=== PATIENT | female | born 1985 | race Caucasian/White ===

== ENCOUNTER 2019-11-22 09:17 | Outpatient (CLI) | payer OTHER, SELFPAY ==
--- NOTE | 2019-11-22 11:15 | NEURO_ITS ---
Patient Number: [id number] Impression: # Complains of twitching of muscles after taking Sertraline and continuous even though she stopped the medicine. # Normal nerve conduction study. # Normal needle/EMG exam without any evidence of neurogenic changes, myopathic changes or fibs. Nerve Conduction Studies Anti Sensory Summary Table Stim Site NR Peak (ms) P-T Amp (?V) Site1 Site2 Delta-P (ms) Dist (cm) Juan (m/s) Left Median Anti Sensory (2-3nd Digit) Wrist 2.8 90.4 Wrist 2-3nd Digit 2.8 14.0 50 Wrist 2.7 83.6 Wrist 2-3nd Digit 2.8 14.0 50 Right Median Anti Sensory (2-3nd Digit) Wrist 2.6 82.3 Wrist 2-3nd Digit 2.6 14.0 54 Wrist 2.8 91.5 Wrist 2-3nd Digit 2.6 14.0 54 Left Radial Anti Sensory (Base 1st Digit) Wrist 1.9 27.5 Wrist Base 1st Digit 1.9 0.0 Right Radial Anti Sensory (Base 1st Digit) Wrist 2.1 27.9 Wrist Base 1st Digit 2.1 0.0 Left Sup Fibular Anti Sensory (Ant Lat Mall) 14 cm 2.9 14.4 14 cm Ant Lat Mall 2.9 16.0 55 Right Sup Fibular Anti Sensory (Ant Lat Mall) 14 cm 3.3 13.8 14 cm Ant Lat Mall 3.3 16.0 48 Left Sural Anti Sensory (Lat Mall) Calf 3.9 10.3 Calf Lat Mall 3.9 16.0 41 Right Sural Anti Sensory (Lat Mall) Calf 3.7 18.7 Calf Lat Mall 3.7 16.0 43 Left Ulnar Anti Sensory (5th Digit) Wrist 2.4 78.1 Wrist 5th Digit 2.4 14.0 58 Right Ulnar Anti Sensory (5th Digit) Wrist 2.1 89.5 Wrist 5th Digit 2.1 14.0 67 Motor Summary Table Stim Site NR Onset (ms) O-P Amp (mV) Site1 Site2 Delta-0 (ms) Dist (cm) Juan (m/s) Left Median Motor (Abd Poll Brev) Wrist 2.9 8.1 Elbow Wrist 4.2 26.0 62 Elbow 7.1 9.4 Right Median Motor (Abd Poll Brev) Wrist 3.0 10.0 Elbow Wrist 4.6 26.0 57 Elbow 7.6 4.1 Left Peroneal Motor Run #2 (Vastus Med) Ankle 4.3 4.6 Popit Ankle 6.7 36.0 54 Popit 11.0 4.3 Right Peroneal Motor (Vastus Med) Ankle 3.8 5.7 Popit Ankle 6.7 36.0 54 Popit 10.5 5.0 Left Tibial Motor (Abd Motley Brev) Ankle 4.9 11.3 Knee Ankle 7.7 40.0 52 Knee 12.6 10.3 Right Tibial Motor (Abd Motley Brev) Ankle 3.8 7.6 Knee Ankle 8.3 39.0 47 Knee 12.1 5.6 Left Ulnar Motor (Abd Dig Minimi) Wrist 2.1 7.6 A Elbow Wrist 4.1 28.0 68 A Elbow 6.2 6.9 Right Ulnar Motor (Abd Dig Minimi) Wrist 2.2 8.8 A Elbow Wrist 3.8 26.0 68 A Elbow 6.0 8.1 F Wave Studies NR F-Lat (ms) L-R F-Lat (ms) Left Median (Mrkrs) (Abd Poll Brev) 25.71 0.96 Right Median (Mrkrs) (Abd Poll Brev) 26.67 0.96 Left Peroneal (Mrkrs) (EDB) 47.19 0.88 Right Peroneal (Mrkrs) (EDB) 48.07 0.88 Left Tibial (Mrkrs) (Abd Hallucis) 48.28 0.63 Right Tibial (Mrkrs) (Abd Hallucis) 47.66 0.63 Left Ulnar (Mrkrs) (Abd Dig Min) 25.59 0.41 Right Ulnar (Mrkrs) (Abd Dig Min) 25.18 0.41 EMG Side Muscle Nerve Root Ins Act Fibs Amp Dur Recrt Comment Right 1stDorInt Ulnar C8-T1 Nml Nml Nml Nml Nml Right Ext Indicis Radial (Post Int) C7-8 Nml Nml Nml Nml Nml Right Ext Digitorum Radial (Post Int) C7-8 Nml Nml Nml Nml Nml Right BrachioRad Radial C5-6 Nml Nml Nml Nml Nml Right PronatorTeres Median C6-7 Nml Nml Nml Nml Nml Right Abd Poll Brev Median C8-T1 Nml Nml
== END 2019-11-22 09:18 | disposition home or self-care (01) ==
PROVIDERS: PCP Family Medicine; Visit Provider Psychiatry & Neurology Neurology
DX: R20.2 Paresthesia of skin (principal)
CPT/HCPCS: 95886; 95913

== ENCOUNTER → 2020-07-06 11:55 | Outpatient (CLI) | payer OTHER, SELFPAY ==
--- NOTE | ~2020-07-06 | US_ITS ---
EXAMINATION: US OB >= 14 weeks Fetus DATE: 07/06/2020 12:32 INDICATION: Second trimester anatomic survey TECHNIQUE: Real-time ultrasound of the pelvis was performed. COMPARISON: None. FINDINGS: There is a single living fetus in vertex presentation. The placenta is anterior. heart rate is 148 beats per minute (bpm). cardiac activity and movement are noted. The amniotic fluid index is subjectively normal. The following anatomy was identified as normal: 4 chamber heart 3 vessel cord cord insertion kidneys urinary bladder stomach spine diaphragm ventricles cisterna magna cerebellum The following biometric data were obtained: Biparietal diameter (BPD): 4.2 cm; head circumference (HC): 16.0 cm; abdominal circumference (AC): 13 .2 cm; femur length (FL): 2.6 cm. These measurements are concordant. Estimated weight is 238 g +/- 35 g, which correlates with the 62nd percentile when 12/06/2020 is used as estimated date of delivery. As single measurements, these parameters are each equal to the following estimated gestational ages w ith ranges of +/- 2 standard deviations: BPD: 18 weeks 5 days ( 17 weeks 0 days - 20 weeks 4 days). HC: 18 weeks 6 days ( 17 weeks 2 days - 20 weeks 2 days). AC: 18 weeks 5 days ( 16 weeks 5 days - 20 weeks 5 days). FL: 18 weeks 0 days ( 16 weeks 4 days - 19 weeks 2 days). estimated gestational age based solely on measurements from this exam is 18 weeks 4 days +/- 1 weeks 2 days. IMPRESSION: 1. Single living fetus in vertex presentation. 2. Estimated weight is 238 g +/- 35 g, which correlates with the 62nd percentile when 12/06/2020 is used as estimated date of delivery. Reviewed, dictated and finalized at location B. IMPRESSION: 1. Single living fetus in vertex presentation. 2. Estimated weight is 238 g +/- 35 g, which correlates with the 62nd per centile when 12/06/2020 is used as estimated date of delivery.
== END ==
PROVIDERS: Visit Provider Obstetrics & Gynecology
DX: Z36.89 Encounter for other specified antenatal screening (principal); Z3A.18 18 weeks gestation of pregnancy
CPT/HCPCS: 76805

== ENCOUNTER 2020-11-21 11:41 | Outpatient (CLI) | payer OTHER, SELFPAY ==
[2020-11-21 12:19] LABS: Basophils Percent Auto 0.2 % (0.2-1.2); Eosinophils Absolute Auto 0.1 K/mm3 (0-0.3); Eosinophils Percent Auto 0.6 % (0-4.4); Hematocrit 38.9 % (37.0-47.0); Hemoglobin 12.9 g/dL (12.0-15.0); Immature Granulocyte Absolute 0.03 K/mm3 (0.00-0.031); Immature Granulocyte Percent A 0.4 % (0-0.5); Lymphocytes Absolute Auto 1.88 K/mm3 (0.9-3.2); Mean Corpuscular HGB Conc 33.2 g/dl (32-36); Mean Corpuscular Hemoglobin 28.3 pg (26-34); Mean Corpuscular Volume 85.3 fl (80-100); Mean Platelet Volume 9.2 fl (7.4-10.4); Monocytes Absolute Auto 0.6 K/mm3 (0.1-0.6); Monocytes Percent Auto 6.5 % (2.6-8.5); Neutrophils Percent Auto 70.3 % (45.5-73.1); Platelet Count Result 249 k/mm3 (150-375); Red Blood Count 4.56 M/mm3 (4.2-5.4); Red Cell Distribution Width 13.8 % (11.5-14.5); White Blood Count 8.6 K/mm3 (4.5-10.0)
[2020-11-21 12:34] LABS: Anion Gap 4 mmol/L (8-16); Blood Urea Nitrogen 8 mg/dL (7-17); Carbon Dioxide 24 mmol/L (22-30); Chloride 106 mmol/L (98-107); Lactate Dehydrogenase 205 U/L (313-618); Potassium 3.9 mmol/L (3.4-5.0); Sodium 134 mmol/L (137-145)
[2020-11-21 12:35] LABS: Alanine Aminotransferase 23 U/L (4-35); Albumin Level 3.7 g/dL (3.5-5.1); Alkaline Phosphatase 105 U/L (38-126); Aspartate Amino Transferase 25 U/L (14-36); Bilirubin,Total 0.4 mg/dL (0.2-1.3); Calcium 8.8 mg/dL (8.4-10.2); Estimated Glomerular Filt Rate > 60; Glucose 90 mg/dL (65-105); Uric Acid 4.9 mg/dL (2.5-7.5)
== END 2020-11-21 11:42 | disposition home or self-care (01) ==
LOC: ANHOBOP 11:49
PROVIDERS: PCP Family Medicine; Visit Provider Obstetrics & Gynecology
DX: O13.9 Gestational [pregnancy-induced] hypertension without significant proteinuria, unspecified trimester (principal); Z3A.00 Weeks of gestation of pregnancy not specified
CPT/HCPCS: 36415; 80053; 83615; 84550; 85025

== ENCOUNTER 2020-11-22 13:19 | Outpatient (NON) | payer OTHER, SELFPAY ==
[2020-11-22 13:28] VITALS: BMI 39.9
[2020-11-22 13:41] LABS: Collection Time Urine 24 HOURS
[2020-11-22 13:47] LABS: Specific Gravity Ur 1.009; Total Volume 24 Hour Urine 2600 ml
[2020-11-22 14:01] LABS: Creatinine Clearance Urine 153.2 ml/min (75-125); Creatinine Urine 61.1 mg/dL; Patient Weight 232 Lbs
[2020-11-22 15:49] LABS: Total Protein Urine 24 Hr 156 mg/24hr (0-149); Total Protein Urine Random < 6.0 mg/dL (0.0-11.9)
== END 2020-11-22 13:20 ==
PROVIDERS: PCP Family Medicine; Visit Provider Obstetrics & Gynecology
DX: O13.9 Gestational [pregnancy-induced] hypertension without significant proteinuria, unspecified trimester (principal); Z3A.00 Weeks of gestation of pregnancy not specified
CPT/HCPCS: 81050; 82575; 84156

== ENCOUNTER 2020-11-26 22:37 | Inpatient (IN) | payer OTHER, SELFPAY ==
[2020-11-27] VITALS (113 sets, daily range): BP systolic 93–213; BP diastolic 53–191; PULSE 68–129; RESP 16; TEMP 36.3–37.7; O2SAT 80–100; BMI 39.5
[2020-11-27] MEDS: LACTATED RINGERS 1,000 ML 125 ML IV CONT ×3 (00:55→04:42)
[2020-11-27 01:04] LABS: Basophils Percent Auto 0.2 % (0.2-1.2); Eosinophils Percent Auto 0.1 % (0-4.4); Hematocrit 41.5 % (37.0-47.0); Hemoglobin 13.7 g/dL (12.0-15.0); Immature Granulocyte Absolute 0.06 K/mm3 (0.00-0.031); Immature Granulocyte Percent A 0.4 % (0-0.5); Lymphocytes Absolute Auto 2.48 K/mm3 (0.9-3.2); Lymphocytes Percent Auto 18.2 % (18.3-44.2); Mean Corpuscular Hemoglobin 28.5 pg (26-34); Mean Corpuscular Volume 86.5 fl (80-100); Mean Platelet Volume 9.5 fl (7.4-10.4); Monocytes Absolute Auto 0.7 K/mm3 (0.1-0.6); Neutrophils Absolute Auto 10.4 K/mm3 (1.3-6.7); Neutrophils Percent Auto 76.1 % (45.5-73.1); Platelet Count Result 241 k/mm3 (150-375); Red Cell Distribution Width 13.6 % (11.5-14.5); White Blood Count 13.7 K/mm3 (4.5-10.0)
--- NOTE | 2020-11-27 01:29 | WPDANESEPPF ---
Anes - Initial Pre Proc Eval Procedure: labor epidural Date/Time: 11/27/20 01:29 Surgeon: Tye Schrader MD Pre Op Diagnosis: labor pain Pre Op Diagnosis: Contractions Patient Data Age: 35 Gender: F Height: Weight: Last Vital Signs Temp 36.3 C L 11/27/20 01:23 Pulse 129 H 11/27/20 01:28 BP 116/70 11/27/20 01:28 Pulse Ox 100 11/27/20 01:25 Allergies Allergy/AdvReac Type Severity Reaction Status Date / Time Penicillins Allergy Unknown Rash Verified 11/10/20 12:34 Home Medications Medication Instructions Recorded Confirmed Type cholecalciferol (vitamin D3) 25 mcg PO DAILY 11/10/20 11/10/20 History [Vitamin D3] ferrous sulfate 325 mg PO DAILY 11/10/20 11/10/20 History prenat.vits,guillermo,uac-abms-enamy 1 tablet PO DAILY 11/10/20 11/10/20 History [ #2] Laboratory Tests 11/27/20 11/27/20 00:57 00:57 WBC Pending RBC Pending Hgb Pending Hct Pending MCV Pending MCH Pending MCHC Pending RDW Pending Plt Count Pending MPV Pending Immature Gran % (Auto) Pending Neut % (Auto) Pending Lymph % (Auto) Pending [place] % (Auto) Pending Eos % (Auto) Pending Baso % (Auto) Pending Lymph # (Auto) Pending [place] # (Auto) Pending Eos # (Auto) Pending Baso # (Auto) Pending Abs Immat Gran (auto) Pending Absolute Neuts (auto) Pending Absolute Nucleated RBC Pending Nucleated RBC % Pending RPR Pending Patient hx anesthesia problems: none Family hx anesthesia problems: none PMFSH Family History Family History (Updated 11/10/20 @ 12:38 by Donte Wall RN) Grandparent Family history of malignant neoplasm of cervix, Onset Age: 89 Father Chronic leukemia Other Family history of multiple sclerosis Social History Social History Smoking status: Never smoker Alcohol intake: current Substance use: never Spiritual care concerns: No Anes - Eval Final PreProcedure Day of Procedure 11/27/20 01:29 Patient weight: obese ASA classification: II Anesthesia type and monitoring: regional epidural Informed Consent: The patient's anesthetic plan and its attendant risks and benefits were discussed with the patient/family/POA. Questions were solicited and answers provided to the satisfaction of the patient/family/POA.
[2020-11-27] MEDS: CLINDAMYCIN 900 MG/D5W 50 ML 900 MG/50 ML PIGGYBACK 50 MG IVPB (01:32)
--- NOTE | 2020-11-27 02:08 | LDADM ---
This patient, Rigo Spears, was admitted to Labor/Delivery/Recovery 105 on 11/26/20 at 22:37. Plans for labor, pain management and were discussed with patient. Patient/family oriented to hospital policies and general routines including ID bracelet, bed and alarms, visiting hours, pain management, procedures, bathroom and other care routines, personal items, smoking policy, room service/diet and guest tray routines, security routines, and visiting hours. Patient/Family are encouraged to report perceived risks to care and to ask questions if they do not understand what they are told or what they should do. See OBIX for further documentation.
[2020-11-27] MEDS: OXYTOCIN 30 UNITS/NS 500 ML 30 UNITS/500 ML BAG 999 UNITS IV CONT (06:45)
--- NOTE | 2020-11-27 07:00 | PM.OBPRVD ---
OB - Delivery Note Procedure Delivery date: 11/27/20 Procedure: Intrapartal events: None Induction method: none Delivery monitor: external FHT, external uterine and internal FHT Route of delivery: Laceration Description: Perineal - 2nd Degree Delivery repair: vicryl Specimen: Yes Quantitative Blood Loss (ml): 120 Anesthesia type: Epidural Disposition: observation [place] Baby Date of : 11/27/20 Time of : 06:39 Weeks of gestation at delivery: 38 Infant gender: Male Weight (pounds): 7 Weight (ounces): 5 presentation: vertex position: Left Occiput Anterior Placenta delivery description: Spontaneous cord vessel description: 3 Vessels score one minute: 8 score five minutes: 9
--- NOTE | 2020-11-27 10:15 | PC.NURSE ---
Patient transferred to post room #278 via wheelchair. Support person present. Oriented to unit, room, information board, rooming in, admission packet and security measures. Patient verbalizes understanding.
[2020-11-27 11:02] LABS: Rapid Plasma Reagin Non-Reactive (NonReactive)
[2020-11-27] MEDS: IBUPROFEN 600 MG TABLET PO (13:21)
[2020-11-27] MEDS: LANOLIN (LANSINOH) 7.5 GM CREAM 1 APPLIC TOPICAL (13:22)
--- NOTE | 2020-11-27 17:38 | PC.NURSE ---
Pt. took home vitamin.
[2020-11-28 04:17] LABS: Hematocrit 34.1 % (37.0-47.0); Hemoglobin 11.4 g/dL (12.0-15.0)
[2020-11-28 07:24] VITALS: BP 127/75; PULSE 74; RESP 14; TEMP 35.7; O2SAT 100
--- NOTE | 2020-11-28 07:57 | WPDANLDPN2 ---
Anes-Prog Note L&D Date/Time: 11/28/20 07:57 Comfortable throughout: labor and delivery Neuraxial method: epidural Epidural/Spinal procedure site: clean & non-tender Neuro status: Neuro function grossly intact. Cardiovascular status: normal Respiratory status: normal Airway patency: baseline Mental status: baseline Post-Op hydration status: normal Vital Signs: Last Vital Signs Temp 35.7 C L 11/28/20 07:24 Pulse 74 11/28/20 07:24 Resp 14 11/28/20 07:24 BP 127/75 11/28/20 07:24 Pulse Ox 100 11/28/20 07:24 Pain score (VAS): 2 I/O: Intake & Output 11/27/20 11/27/20 11/28/20 15:59 23:59 07:59 Output Total 75 Balance -75 Post-procedural complaints: none Patient feedback: Patient satisfied with anesthetic care.
--- NOTE | 2020-11-28 12:43 | PM.OBPNVD ---
OB - PN: Subj Subjective Date/time seen: 11/28/20 12:43 Patient reports doing okay some mild cramping no meds taken. bleeding mild to moderate OB - PN: Obj Data Labs CBC & Chem 7: 11/28/20 04:04 Labs: Laboratory Results - last 24 hr 11/28/20 04:04 Hgb 11.4 L Hct 34.1 L OB - PN A/P Assessment and Plan (1) (normal spontaneous vaginal delivery): Code(s): O80 - Encounter for full-term uncomplicated delivery Status: Acute Assessment and Plan: continue with pp care. Time Spent With Patient Time: Total time spent is greater than 50% in coordination of care (as documented) at patient's floor/unit and/or counseling patient: Exam GI: Other: ff below umbilicus
[2020-11-28] MEDS: IBUPROFEN 600 MG TABLET PO ×2 (13:16→20:22)
--- NOTE | 2020-11-28 15:47 | PC.NURSE ---
Consulted with patient, reviewed feeding cues, frequencies, duration of feedings, feeding elimination flow sheet, and signs of adequate intake. Demonstrated stimulation techniques to wake for feeding. Assisted with to breast. Reviewed positioning/alignment, holding breast and asymmetrical latch on. was able to latch correctly. Infant nursed eagerly, with steady draws and frequent swallowing noted. Reviewed signs of a correct latch, effective nursing and suck swallow ratio. Infant was able to maintain latch without discomfort to mother. Encouraged mom to watch for infant slipping into shallow latch and to keep infant in nice and close to the breast. Nipple care reviewed. Instructed mother to call out for RN assistance if she is unable to latch for feeding or she has discomfort with nursing. Instructed feeding should be initiated three hours from start of last feeding or if feeding cues are noted before. Mother voiced understanding of information shared.
[2020-11-28 20:00] VITALS: BP 134/84; PULSE 77; RESP 16; TEMP 36.6; O2SAT 100
[2020-11-29] MEDS: IBUPROFEN 600 MG TABLET PO (08:14)
[2020-11-29 08:15] VITALS: BP 131/83; PULSE 83; RESP 14; TEMP 37; O2SAT 100
--- NOTE | 2020-11-29 11:36 | PC.NURSE ---
Patient viewed the discharge video Mother & Baby Care, The First Two Weeks . Patient was given the opportunity and encouraged to ask questions. Patient verbalized understanding of information shared and has been given the mother/baby guide for home reference.
[2020-11-30 09:40] VITALS: BP 132/80; PULSE 86; RESP 20; TEMP 36.7; O2SAT 100
--- NOTE | 2020-12-17 11:35 | PM.OBDSVD ---
DS: Admitting Diagnosis Admitting Diagnosis Admitting Diagnosis: labor DS: Discharge Diagnosis Discharge Diagnosis (1) (normal spontaneous vaginal delivery): Code(s): O80 - Encounter for full-term uncomplicated delivery Status: Acute OB - DS: Summary OB Procedures : Ultrasound OB Procedures Intrapartum: Spontaneous Vag Delivery OB Procedures: : None Time Spent with Patient Time attestation: Total time spent providing and/or coordinating discharge services: Discharge Plan Discharge Attending physician on discharge: Tye Schrader Consulting providers: Kendall Carlton Discharging Clinician: Tye Schrader Patient Disposition: Home, Self-Care Activity: may shower Diet: regular Discharge Instructions: Education: Mom and Baby Guide Given to: Mother Follow-Up: Call your delivering provider's office for an appointment to be seen in: 1 Week Mom and baby should come to the [facility] for the follow-up appointment. Appointment Date/Time: November 30, 2020 at 9:00 am What to expect at your follow-up visit: Physical Assessment Call [phone] if you are unable to keep your appointment time. BREAST CARE: * Wear a snug supportive bra. * For engorgement discomfort: Breast Feeding: * Apply warm moist washcloths * Express milk as needed to relieve engorgement * Wear loose clothing * For sore nipples: * Identify correct latch-on * Apply warm moist washcloths before and after nursing * Air dry nipples after nursing * May apply Lansinoh cream to nipples EPISIOTOMY/PERINEAL CARE: * Until bleeding stops, use your matt bottle after urinating * Change your pad frequently throughout the day * You may take sitz baths several times a day (fill your bathtub with warm water and soak for 20 minutes.) Do NOT bathe in the water * No tub baths until seen by your physician - You may shower ACTIVITY: * Rest as much as possible. * Do not exercise or lift anything heavier than your baby (such as laundry or other children.) * Avoid stairs or driving as much as possible. * Do not put anything into the vagina. No douching, tampons, or sexual activity until seen by physician. NOTIFY PHYSICIAN IF YOU HAVE ANY QUESTIONS OR IF ANY OF THE FOLLOWING SYMPTOMS OCCUR: * If your episiotomy or incision becomes red, swollen, or more painful than what you have experienced in the hospital. * If your vaginal bleeding becomes foul smelling. * If your vaginal bleeding becomes more heavy than a period or if your bleeding changes from pink to bright red. However, you may pass an occasional walnut-sized clot once or twice for the first week . * If you experience a sharp, shooting pain in you calves. * If you discover a hard, reddened area on your breast or if you experience flu-like symptoms. DIET: * Eat regular, well-balanced meals. * Drink plenty of fluids daily. If , drink to thirst. Patient Instructions: Antibiotic Form Stand Alone Forms: General Discharge Information Follow-up/Referrals: Tye Schrader MD [Physician] - Discharge Medications: Continued prenat.vits,guillermo,wpx-zutj-xqarn Tablet 1 tablet PO DAILY RF: 0 cholecalciferol (vitamin D3) [Vitamin D3] 25 mcg (1,000 unit) Tablet 25 mcg PO DAILY RF: 0 Discontinued ferrous sulfate 325 mg (65 mg iron) Tablet 325 mg PO DAILY RF: 0 Date of admission: 11/26/20 22:37 Primary Care Provider: Darren Crockett Admitting Provider: Tye Schrader Attending physician on admission: Tye Schrader Condition: Stable
== END 2020-11-29 14:20 | disposition home or self-care (01) | DRG 807 ==
LOC: ANHLDR 11-27 01:31 → ANHOB2 11-27 10:10
PROVIDERS: Admitting Provider Obstetrics & Gynecology; PCP Family Medicine; Visit Provider Obstetrics & Gynecology
DX: O99.824 Streptococcus B carrier state complicating childbirth (principal); Z37.0 Single live birth; Z3A.38 38 weeks gestation of pregnancy; O70.1 Second degree perineal laceration during delivery; O99.214 Obesity complicating childbirth; E66.9 Obesity, unspecified
CPT/HCPCS: 36415; 84112; 85014; 85018; 85025; 86592; 86850; 86900; 86901; A9270; J2590; J2795; J7120